=== PATIENT | male | born 1990 | race Caucasian/White ===

== ENCOUNTER 2020-03-24 00:52 | Emergency (ER) | payer BC ==
[~2020-03-24] VITALS: Ht 172.7 cm; Wt 79.4 kg
[2020-03-24] MEDS ORDERED: HYDROCODONE/APAP 5MG-325MG TAB PO ONE (01:30)
[2020-03-24] MEDS ORDERED: TYLENOL # 31 EA PO (01:30)
[2020-03-24] MEDS ORDERED: DEXAMETHASONE SOD PHOS INJ 4 MG/ML VIAL IM ONE (01:30)
[2020-03-24] MEDS ORDERED: DEXAMETHASONE SOD PHOS INJ 4 MG/ML VIAL ONE (01:30)
[2020-03-24] MEDS ORDERED: HYDROCODONE/APAP 5MG-325MG TAB ONE (01:31)
== END 2020-03-24 01:54 | disposition home or self-care (01) ==
LOC: FSED 01:20
DX: U07.1 COVID-19 (principal); R50.9 Fever, unspecified; J02.9 Acute pharyngitis, unspecified; B34.9 Viral infection, unspecified
CPT/HCPCS: 99283; J1100